=== PATIENT | male | born 1985 | race Two or more races ===

== ENCOUNTER 2022-11-16 10:37 | Emergency (ER) | payer OTHER ==
[~2022-11-16] VITALS: Ht 185.4 cm; Wt 90.0 kg
[2022-11-16 11:01] VITALS: BP 129/77
[2022-11-16] MEDS ORDERED: ACETAMINOPHEN 325 MG TAB PO ONE (11:45)
[2022-11-16] MEDS ORDERED: METH750T22 PO (11:51)
[2022-11-16] MEDS ORDERED: IBUP800T27 PO (11:51)
== END 2022-11-16 11:56 | disposition home or self-care (01) ==
LOC: ER 10:37
DX: S39.012A Strain of muscle, fascia and tendon of lower back, initial encounter (principal); Z79.1 Long term (current) use of non-steroidal anti-inflammatories (NSAID); Z79.899 Other long term (current) drug therapy; V43.52XA Car driver injured in collision with other type car in traffic accident, initial encounter; Y93.89 Activity, other specified; Y92.410 Unspecified street and highway as the place of occurrence of the external cause; Y99.8 Other external cause status
CPT/HCPCS: 72100